=== PATIENT | female | born 1960 | race Two or more races ===

== ENCOUNTER 2016-09-11 09:22 | Emergency (ER) | payer OTHER ==
[~2016-09-11] VITALS: Ht 167.6 cm; Wt 63.6 kg
[2016-09-11 09:24] VITALS: BP 127/84
[2016-09-11] MEDS ORDERED: FLUT16H NASAL (09:34)
[2016-09-11] MEDS ORDERED: ATOR10TA84 PO (09:34)
[2016-09-11] MEDS ORDERED: TIOT4MIS2 IH (09:34)
[2016-09-11] MEDS ORDERED: PROP10 PO (09:34)
[2016-09-11] MEDS ORDERED: ALBU8HFA IH (09:34)
[2016-09-11 09:37] LABS: GLUCOSE,POINT OF CARE 115 MG/DL (70-110)
[2016-09-11] MEDS ORDERED: IBUPROFEN 600 MG TABLET PO ONE (10:00)
== END 2016-09-11 10:22 | disposition home or self-care (01) ==
LOC: EMS 09:24
DX: M25.531 Pain in right wrist (principal); J44.9 Chronic obstructive pulmonary disease, unspecified; E11.9 Type 2 diabetes mellitus without complications; I10 Essential (primary) hypertension; F17.210 Nicotine dependence, cigarettes, uncomplicated
CPT/HCPCS: 82962; 99282; 99283

== ENCOUNTER 2016-11-11 14:19 | Emergency (ER) | payer OTHER ==
[~2016-11-11] VITALS: Ht 167.6 cm; Wt 63.5 kg
[~2016-11-11 14:19] MED LIST: ALBU8HFA IH; ATOR10TA84 PO; FLUT16H NASAL; PROP10 PO; TIOT4MIS2 IH
[2016-11-11] MEDS ORDERED: IBUP-2070 PO (14:33)
[2016-11-11] MEDS ORDERED: MONT10TA21 PO (14:33)
[2016-11-11] MEDS ORDERED: ALBU8HFA4 IH (14:33)
[2016-11-11] MEDS ORDERED: METF500T4 PO (14:33)
[2016-11-11] MEDS ORDERED: OMEP20 PO (14:33)
[2016-11-11] MEDS ORDERED: DOCU240C25 PO (14:33)
[2016-11-11] MEDS ORDERED: LISI-660 PO (14:33)
[2016-11-11] MEDS ORDERED: CALC-51 PO (14:33)
[2016-11-11 14:36] LABS: GLUCOSE,POINT OF CARE 164 MG/DL (70-110)
[2016-11-11] MEDS ORDERED: ACETAMINOPHEN 500 MG TABLET PO ONE (15:15)
[2016-11-11] MEDS ORDERED: SULFAMETHOX/TRIMETH DS 800-160 MG/TABLET PO ONE (15:15)
[2016-11-11] MEDS ORDERED: CEPHALEXIN MONOHYDRATE 500 MG CAPSULE PO ONE (15:15)
[2016-11-11] MEDS ORDERED: DSS100 PO (15:16)
[2016-11-11 15:43] VITALS: BP 122/72
== END 2016-11-11 15:52 | disposition home or self-care (01) ==
LOC: EMS 14:21
DX: L03.116 Cellulitis of left lower limb (principal); E11.9 Type 2 diabetes mellitus without complications; J44.9 Chronic obstructive pulmonary disease, unspecified; I10 Essential (primary) hypertension; F17.210 Nicotine dependence, cigarettes, uncomplicated
CPT/HCPCS: 82962; 99284; 99406

== ENCOUNTER 2018-08-27 22:20 | Inpatient (IN) | payer OTHER ==
[~2018-08-27] VITALS: Ht 170.2 cm; Wt 64.2 kg
[~2018-08-27 22:20] MED LIST changes: +CALC-1038 PO; +DSS100 PO; +IBUP-2070 PO; +LISI-660 PO; +METF-960 PO; +MONT10TA21 PO; +OMEP20 PO; -PROP10 PO; -TIOT4MIS2 IH
[2018-08-27 23:49] LABS: GLUCOSE,POINT OF CARE 113 MG/DL (70-110)
[2018-08-28] MEDS ORDERED: ALBUTEROL SULFATE 5 MG/ML 20 ML NEB SOLN [BULK] NEB ONE
[2018-08-28] MEDS ORDERED: IPRATROPIUM BROMIDE 0.5 MG/2.5 ML NEB SOLUTION NEB ONE
[2018-08-28] MEDS ORDERED: MethylPREDNISolone SOD SUCC 125 MG/2 ML VIAL IVP ONE
[2018-08-28] MEDS ORDERED: 0.9% SODIUM CHLORIDE 15 ML NEB SOLUTION NEB ONE (00:23)
[2018-08-28 03:15] LABS: BASOPHILS % (AUTO) 0.2 % (0.0-2.0); EOSINOPHILS % (AUTO) 0.4 % (1.0-6.0); HEMATOCRIT 41.8 % (36-46); HEMOGLOBIN 14.2 g/dL (12.0-16.0); LYMPHOCYTES # (AUTO) 1.1 K/uL (1.0-4.8); LYMPHOCYTES % (AUTO) 7.8 % (22.0-44.0); MEAN CORPUSCULAR HEMOGLOBIN 31.1 pg (26.0-34.0); MEAN CORPUSCULAR VOLUME 92 fL (80-100); MONOCYTES # (AUTO) 0.3 K/uL (0.1-1.0); MONOCYTES % (AUTO) 1.9 % (2.0-9.0); NEUTROPHILS # (AUTO) 12.7 K/uL (1.8-7.7); PLATELET COUNT (AUTO) 276 K/uL (150-450); RED BLOOD CELL COUNT(AUTO) 4.57 MIL/uL (4.00-5.20); RED CELL DISTRIBUTION WIDTH 16.5 % (11.5-14.5)
[2018-08-28 03:17] LABS: NEUTROPHILS % (AUTO) 89.7 % (40.0-70.0)
[2018-08-28 03:30] LABS: ALANINE AMINOTRANSFERASE 17 U/L (12-78); ALBUMIN 3.5 g/dL (3.4-5.0); ALKALINE PHOSPHATASE 101 U/L (46-116); ANION GAP 13 mmol/L (8-16); ASPARTATE AMINOTRANSFERASE 22 U/L (15-37); BILIRUBIN,TOTAL 0.4 mg/dL (0.1-1.0); CALCIUM, TOTAL 9.3 mg/dL (8.8-10.5); CARBON DIOXIDE 26 mmol/L (22-29); CHLORIDE 103 mmol/L (98-107); CREATININE 0.68 mg/dL (0.60-1.30); GLOMERULAR FILTR. RATE CALC > 60 mL/min (>60); GLUCOSE,RANDOM 210 mg/dL (70-110); SODIUM SERUM 142 mmol/L (136-145); TOTAL PROTEIN, SERUM 7.4 g/dL (6.4-8.2); UREA NITROGEN, BLOOD 12 mg/dL (7-18)
[2018-08-28 03:36] LABS: B-TYPE NATRIURETIC PEPTIDE 83 pg/mL (0-100)
[2018-08-28 03:38] LABS: POTASSIUM 2.7 mmol/L (3.5-5.1)
[2018-08-28] MEDS ORDERED: SODIUM CHLORIDE 0.9% 1,800 ML IV ONE (03:54)
[2018-08-28] MEDS ORDERED: CefTRIAXone 1 GM/DEXTROSE 50 ML IV ONE (04:00)
[2018-08-28] MEDS ORDERED: AZITHROMYCIN 500 MG/NS 250 ML IV ONE (04:00)
[2018-08-28] MEDS ORDERED: LORazepam 1 MG TABLET PO ONE (04:00)
[2018-08-28] MEDS ORDERED: POTASSIUM CHLORIDE 20 MEQ ER TABLET PO ONE (04:00)
[2018-08-28] MEDS ORDERED: ONDANSETRON HCL 4 MG/2 ML VIAL IVP PRN (04:15)
[2018-08-28] MEDS ORDERED: ACETAMINOPHEN 325 MG TABLET PO PRN (04:15)
[2018-08-28] MEDS ORDERED: 0.9% SODIUM CHLORIDE 10 ML SYRINGE IVP PRN (04:15)
[2018-08-28 04:42] LABS: FREE T4 (FREE THYROXINE) 0.89 ng/dL (0.76-1.46); THYROID STIMULATING HORMONE 1.57 uIU/mL (0.36-3.74)
[2018-08-28] MEDS: POTASSIUM CHL 10 MEQ/WATER 50 ML IV SCH ×2 (04:53→06:21)
[2018-08-28] MEDS ORDERED: IOVERSOL 350 MG/ML 100 ML VIAL ONE (05:13)
[2018-08-28] MEDS ORDERED: SODIUM CHLORIDE 0.9% 100 ML ONE (05:13)
[2018-08-28] MEDS ORDERED: IPRATROPIUM BROMIDE 0.5 MG/2.5 ML NEB SOLUTION NEB SCH (07:00)
[2018-08-28] MEDS ORDERED: ALBUTEROL SULFATE 2.5 MG/0.5 ML NEB SOLUTION NEB SCH (07:00)
[2018-08-28 07:40] LABS: GLUCOSE,POINT OF CARE 195 MG/DL (70-110)
[2018-08-28 08:23] VITALS: BP 133/80
[2018-08-28] MEDS ORDERED: DEXTROSE 50%-WATER 25 GM/50 ML SYRINGE IVP PRN (08:30)
[2018-08-28] MEDS ORDERED: MAGNESIUM HYDROXIDE SUSPENSION 30 ML UDCUP PO PRN (08:30)
[2018-08-28] MEDS ORDERED: POTASSIUM CHL 10 MEQ/WATER 50 ML IV PRN (08:30)
[2018-08-28] MEDS ORDERED: ALBUTEROL SULFATE 2.5 MG/0.5 ML NEB SOLUTION NEB PRN (08:30)
[2018-08-28] MEDS ORDERED: POTASSIUM CHLORIDE 20 MEQ ER TABLET PO PRN (08:30)
[2018-08-28] MEDS ORDERED: IPRATROPIUM BROMIDE 0.5 MG/2.5 ML NEB SOLUTION NEB PRN (08:30)
[2018-08-28] MEDS: DOCUSATE SODIUM 100 MG CAPSULE PO SCH ×2 (09:00→19:58)
[2018-08-28] MEDS ORDERED: MAGNESIUM SULFATE 4 GM/WATER 100 ML IV PRN (09:15)
[2018-08-28] MEDS ORDERED: MAGNESIUM SULFATE 2 GM/WATER 50 ML IV PRN (09:15)
[2018-08-28] MEDS: MAGNESIUM OXIDE 400 MG TABLET PO PRN ×3 (09:29→21:56)
[2018-08-28] MEDS: FAMOTIDINE 20 MG TABLET PO SCH (09:30)
[2018-08-28] MEDS: ASPIRIN 81 MG CHEWABLE TABLET PO SCH (09:30)
[2018-08-28 11:05] VITALS: BP 136/83
[2018-08-28] MEDS: MethylPREDNISolone SOD SUCC 125 MG/2 ML VIAL IVP SCH ×3 (11:18→23:39)
[2018-08-28] MEDS: INSULIN LISPRO 100 UNITS/ML SQ PRN ×3 (11:36→21:53)
[2018-08-28 11:39] LABS: GLUCOMETER DEV NAME(LOC) 5N.2; GLUCOSE,POINT OF CARE 387 MG/DL (70-110)
[2018-08-28] MEDS: ACETAMINOPHEN 325 MG TABLET PO PRN ×2 (15:06→19:58)
[2018-08-28] MEDS: HEPARIN SODIUM,PORCINE 5,000 UNITS/ML VIAL SQ SCH ×2 (15:06→23:41)
[2018-08-28] MEDS ORDERED: PNEUMOCOCCAL VACCINE POLYVALENT 0.5 ML VIAL [PPSV23] IM ONE (15:30)
[2018-08-28 15:56] VITALS: BP 142/80
[2018-08-28 17:09] LABS: GLUCOMETER DEV NAME(LOC) 5N.2; GLUCOSE,POINT OF CARE 166 MG/DL (70-110)
[2018-08-28 19:43] VITALS: BP 134/73
[2018-08-28] MEDS ORDERED: ATORVASTATIN CALCIUM 20 MG TABLET PO SCH (21:00)
[2018-08-28 23:38] VITALS: BP 125/83
[2018-08-29 00:29] LABS: GLUCOMETER DEV NAME(LOC) 5S.2; GLUCOSE,POINT OF CARE 244 MG/DL (70-110)
[2018-08-29] MEDS ORDERED: AZITHROMYCIN 500 MG/NS 250 ML IV SCH (04:00)
[2018-08-29] MEDS ORDERED: SODIUM CHLORIDE 0.9% 250 ML IV ONE (04:21)
[2018-08-29 04:29] VITALS: BP 127/93
[2018-08-29] MEDS: MethylPREDNISolone SOD SUCC 125 MG/2 ML VIAL IVP SCH (05:43)
[2018-08-29] MEDS: INSULIN LISPRO 100 UNITS/ML SQ PRN (05:44)
[2018-08-29 06:53] LABS: BASOPHILS % (AUTO) 0.1 % (0.0-2.0); EOSINOPHILS % (AUTO) 0 % (1.0-6.0); HEMOGLOBIN 13.7 g/dL (12.0-16.0); LYMPHOCYTES # (AUTO) 1.3 K/uL (1.0-4.8); LYMPHOCYTES % (AUTO) 8.2 % (22.0-44.0); MEAN CORPUSCULAR HGB CONC 33.5 G/dL (31.0-37.0); MEAN CORPUSCULAR VOLUME 93 fL (80-100); MONOCYTES # (AUTO) 0.3 K/uL (0.1-1.0); MONOCYTES % (AUTO) 2.2 % (2.0-9.0); NEUTROPHILS # (AUTO) 13.8 K/uL (1.8-7.7); PLATELET COUNT (AUTO) 261 K/uL (150-450); RED BLOOD CELL COUNT(AUTO) 4.43 MIL/uL (4.00-5.20); RED CELL DISTRIBUTION WIDTH 16.3 % (11.5-14.5)
[2018-08-29 06:56] LABS: NEUTROPHILS % (AUTO) 89.5 % (40.0-70.0)
[2018-08-29 07:15] VITALS: BP 141/76
[2018-08-29 07:19] LABS: ALANINE AMINOTRANSFERASE 15 U/L (12-78); ALBUMIN 2.8 g/dL (3.4-5.0); ALKALINE PHOSPHATASE 71 U/L (46-116); ANION GAP 11 mmol/L (8-16); ASPARTATE AMINOTRANSFERASE 15 U/L (15-37); BILIRUBIN,TOTAL 0.2 mg/dL (0.1-1.0); CALCIUM, TOTAL 9.1 mg/dL (8.8-10.5); CARBON DIOXIDE 27 mmol/L (22-29); CHLORIDE 104 mmol/L (98-107); CREATININE 0.61 mg/dL (0.60-1.30); GLOMERULAR FILTR. RATE CALC > 60 mL/min (>60); GLUCOSE,RANDOM 201 mg/dL (70-110); POTASSIUM 3.7 mmol/L (3.5-5.1); SODIUM SERUM 142 mmol/L (136-145); TOTAL PROTEIN, SERUM 6.4 g/dL (6.4-8.2); UREA NITROGEN, BLOOD 10 mg/dL (7-18)
[2018-08-29] MEDS: FAMOTIDINE 20 MG TABLET PO SCH (08:19)
[2018-08-29] MEDS: ACETAMINOPHEN 325 MG TABLET PO PRN (08:19)
[2018-08-29] MEDS: DOCUSATE SODIUM 100 MG CAPSULE PO SCH (08:20)
[2018-08-29] MEDS: ASPIRIN 81 MG CHEWABLE TABLET PO SCH (08:20)
[2018-08-29] MEDS: HEPARIN SODIUM,PORCINE 5,000 UNITS/ML VIAL SQ SCH (08:20)
[2018-08-29] MEDS ORDERED: NICOTINE 21 MG/24 HOUR PATCH TD SCH (09:00)
[2018-08-29 11:05] VITALS: BP 142/79
[2018-08-30 00:04] LABS: GLUCOMETER DEV NAME(LOC) 5N.1; GLUCOSE,POINT OF CARE 214 MG/DL (70-110)
== END 2018-08-29 11:35 | disposition home or self-care (01) | DRG 140 ==
LOC: EMS 22:22 → 5N 08-28 05:00
PROVIDERS: ADMIT Internal Medicine; ATTEND Internal Medicine
PROC: 3E0234Z Introduction of Serum, Toxoid and Vaccine into Muscle, Percutaneous Approach (ICD-10-PCS; principal; 2018-08-28)
DX: J44.1 Chronic obstructive pulmonary disease with (acute) exacerbation (principal); E83.42 Hypomagnesemia; J45.901 Unspecified asthma with (acute) exacerbation; J20.9 Acute bronchitis, unspecified; J44.0 Chronic obstructive pulmonary disease with (acute) lower respiratory infection; E11.9 Type 2 diabetes mellitus without complications; E87.6 Hypokalemia; F17.210 Nicotine dependence, cigarettes, uncomplicated; I10 Essential (primary) hypertension; R00.0 Tachycardia, unspecified; Z23 Encounter for immunization
CPT/HCPCS: 71275; 83036; 83605; 83735; 84132; 84439; 84443; 85379; 87040; 90732; 93005; 94640; 94644; 96365; 96375; G0378; J0456; J0696; J1644; J2930; J3480; J7050

== ENCOUNTER 2019-02-05 19:26 | Emergency (ER) | payer OTHER ==
[~2019-02-05] VITALS: Ht 167.6 cm; Wt 52.3 kg
[~2019-02-05 19:26] MED LIST changes: -FLUT16H NASAL; -IBUP-2070 PO
[2019-02-05 19:44] LABS: GLUCOSE,POINT OF CARE 65 MG/DL (70-110)
[2019-02-05] MEDS ORDERED: IPRATROPIUM BROMIDE 0.5 MG/2.5 ML NEB SOLUTION NEB ONE (20:00)
[2019-02-05] MEDS ORDERED: MethylPREDNISolone SOD SUCC 125 MG/2 ML VIAL IVP ONE (20:00)
[2019-02-05] MEDS ORDERED: ASPIRIN 81 MG CHEWABLE TABLET PO ONE (20:00)
[2019-02-05] MEDS ORDERED: ALBUTEROL SULFATE 5 MG/ML 20 ML NEB SOLN [BULK] NEB ONE (20:00)
[2019-02-05 20:10] LABS: BASOPHILS % (AUTO) 0.6 % (0.0-2.0); HEMATOCRIT 47.3 % (36-46); HEMOGLOBIN 16.3 g/dL (12.0-16.0); LYMPHOCYTES # (AUTO) 6.6 K/uL (1.0-4.8); LYMPHOCYTES % (AUTO) 61.1 % (22.0-44.0); MEAN CORPUSCULAR HGB CONC 34.4 G/dL (31.0-37.0); MEAN CORPUSCULAR VOLUME 99 fL (80-100); MONOCYTES # (AUTO) 0.8 K/uL (0.1-1.0); MONOCYTES % (AUTO) 7.4 % (2.0-9.0); NEUTROPHILS # (AUTO) 3.2 K/uL (1.8-7.7); NEUTROPHILS % (AUTO) 29.9 % (40.0-70.0); PLATELET COUNT (AUTO) 250 K/uL (150-450); RED BLOOD CELL COUNT(AUTO) 4.79 MIL/uL (4.00-5.20); RED CELL DISTRIBUTION WIDTH 14.6 % (11.5-14.5)
[2019-02-05 20:22] LABS: ANION GAP 16 mmol/L (8-16); CALCIUM, TOTAL 8.8 mg/dL (8.8-10.5); CARBON DIOXIDE 28 mmol/L (22-29); CHLORIDE 101 mmol/L (98-107); CREATININE 0.64 mg/dL (0.60-1.30); GLOMERULAR FILTR. RATE CALC > 60 mL/min (>60); GLUCOSE,RANDOM 102 mg/dL (70-110); POTASSIUM 3.1 mmol/L (3.5-5.1); SODIUM SERUM 145 mmol/L (136-145); UREA NITROGEN, BLOOD 8 mg/dL (7-18)
[2019-02-05 20:32] LABS: ALANINE AMINOTRANSFERASE 27 U/L (12-78); ALBUMIN 3.7 g/dL (3.4-5.0); ALKALINE PHOSPHATASE 84 U/L (46-116); ASPARTATE AMINOTRANSFERASE 44 U/L (15-37); CREATINE KINASE, TOTAL ONLY 61 U/L (26-192); TOTAL PROTEIN, SERUM 7.4 g/dL (6.4-8.2)
[2019-02-05 20:44] LABS: APPEARANCE,URINE CLOUDY (CLEAR); BILIRUBIN,URINE NEGATIVE (NEGATIVE); GLUCOSE, URINE (UA) NEGATIVE (NEGATIVE); KETONES,URINE NEGATIVE (NEGATIVE); LEUKOCYTE ESTERASE ,URINE NEGATIVE (NEGATIVE); NITRATE,URINE NEGATIVE (NEGATIVE); OCCULT BLOOD,URINE MODERATE (NEGATIVE); PROTEIN,URINE POS 1+ (NEGATIVE); UROBILINOGEN,URINE 0.2 mg/dL (<=1.0)
[2019-02-05 20:50] LABS: B-TYPE NATRIURETIC PEPTIDE 11 pg/mL (0-100)
[2019-02-05 21:05] LABS: BACTERIA,URINE Few /HPF (None Seen); RBC,URINE 0-2 /HPF (0-2); SQUAMOUS EPITHELIAL CELL,UR Moderate /LPF (None Seen); WBC,URINE 0-2 /HPF (0-5)
[2019-02-05 21:06] LABS: HYALINE CASTS, URINE 0-2 /LPF (None Seen)
[2019-02-05 21:07] LABS: CALCIUM OXALATE CRYSTALS,UR Moderate /LPF (None Seen); COARSE GRANULAR CASTS,URINE 0-2 /LPF (None Seen)
[2019-02-05 22:15] VITALS: BP 122/65
[2019-02-05] MEDS ORDERED: POTASSIUM CHLORIDE 20 MEQ ER TABLET PO ONE (23:00)
== END 2019-02-05 23:09 | disposition home or self-care (01) ==
LOC: EMS 19:28
DX: J44.1 Chronic obstructive pulmonary disease with (acute) exacerbation (principal); E87.6 Hypokalemia; F17.210 Nicotine dependence, cigarettes, uncomplicated; E11.9 Type 2 diabetes mellitus without complications; I10 Essential (primary) hypertension; Z79.899 Other long term (current) drug therapy; Z79.84 Long term (current) use of oral hypoglycemic drugs
CPT/HCPCS: 36415; 71045; 80053; 81001; 82550; 82962; 83880; 84484; 85025; 93005; 94640; 96374; 99285; 99406; J2930; 94644

== ENCOUNTER 2020-04-01 13:36 | Emergency (ER) | payer OTHER ==
[~2020-04-01] VITALS: Ht 167.6 cm; Wt 59.1 kg
[~2020-04-01 13:36] MED LIST changes: +MONT-35 PO; -MONT10TA21 PO
[2020-04-01 13:58] LABS: GLUCOSE,POINT OF CARE 116 MG/DL (70-110)
[2020-04-01] MEDS ORDERED: MORPHINE SULFATE 4 MG/ML SYRINGE IM ONE (15:30)
[2020-04-01] MEDS ORDERED: ONDANSETRON HCL 4 MG/2 ML VIAL IM ONE (15:30)
[2020-04-01 16:42] VITALS: BP 126/75
== END 2020-04-01 16:45 | disposition home or self-care (01) ==
LOC: EMS 13:36
DX: S42.202A Unspecified fracture of upper end of left humerus, initial encounter for closed fracture (principal); J44.9 Chronic obstructive pulmonary disease, unspecified; E11.9 Type 2 diabetes mellitus without complications; I10 Essential (primary) hypertension; F17.210 Nicotine dependence, cigarettes, uncomplicated; Z79.84 Long term (current) use of oral hypoglycemic drugs; Z79.899 Other long term (current) drug therapy; W19.XXXA Unspecified fall, initial encounter; Y93.89 Activity, other specified; Y92.89 Other specified places as the place of occurrence of the external cause; Y99.8 Other external cause status
CPT/HCPCS: 29105; 73030; 73060; 82962; 96372; 99284; J2270; J2405

== ENCOUNTER 2021-12-13 17:32 | Emergency (ER) | payer OTHER ==
[~2021-12-13] VITALS: Ht 157.5 cm; Wt 61.4 kg
[~2021-12-13 17:32] MED LIST changes: -LISI-660 PO; +LISI-892 PO; +METF-1211 PO; -METF-960 PO
[2021-12-13] MEDS ORDERED: ALBUTEROL SULFATE 5 MG/ML 20 ML NEB SOLN [BULK] NEB ONE (17:35)
[2021-12-13] MEDS ORDERED: MethylPREDNISolone SOD SUCC 125 MG/2 ML VIAL IVP ONE (17:45)
[2021-12-13] MEDS ORDERED: 0.9% SODIUM CHLORIDE 5 ML NEB SOLUTION NEB ONE (17:48)
[2021-12-13 17:55] LABS: COVID AG,FIA SOURCE NASOPHARYNGEAL
[2021-12-13 18:03] LABS: BASOPHILS % (AUTO) 0.5 % (0.0-2.0); EOSINOPHILS % (AUTO) 0.5 % (1.0-6.0); HEMATOCRIT 48.5 % (36-46); HEMOGLOBIN 16.6 g/dL (12.0-16.0); LYMPHOCYTES # (AUTO) 2.6 K/uL (1.0-4.8); LYMPHOCYTES % (AUTO) 16.8 % (22.0-44.0); MEAN CORPUSCULAR HGB CONC 34.2 G/dL (31.0-37.0); MEAN CORPUSCULAR VOLUME 94 fL (80-100); MONOCYTES # (AUTO) 0.5 K/uL (0.1-1.0); MONOCYTES % (AUTO) 3.5 % (2.0-9.0); NEUTROPHILS # (AUTO) 12.2 K/uL (1.8-7.7); NEUTROPHILS % (AUTO) 78.7 % (40.0-70.0); PLATELET COUNT (AUTO) 313 K/uL (150-450); RED BLOOD CELL COUNT(AUTO) 5.18 MIL/uL (4.00-5.20); RED CELL DISTRIBUTION WIDTH 13.9 % (11.5-14.5)
[2021-12-13 18:05] LABS: ANION GAP 24 mmol/L (8-16); CALCIUM, TOTAL 9.8 mg/dL (8.8-10.5); CARBON DIOXIDE 19 mmol/L (22-29); CHLORIDE 99 mmol/L (98-107); CREATININE 0.47 mg/dL (0.60-1.30); GLUCOSE,RANDOM 103 mg/dL (70-110); POTASSIUM 3.5 mmol/L (3.5-5.1); SODIUM SERUM 142 mmol/L (136-145); UREA NITROGEN, BLOOD 9 mg/dL (7-18)
[2021-12-13 18:09] LABS: GLOMERULAR FILTR. RATE CALC > 60 mL/min (>60)
[2021-12-13 18:23] LABS: ALANINE AMINOTRANSFERASE 20 U/L (12-78); ALBUMIN 3.7 g/dL (3.4-5.0); ALKALINE PHOSPHATASE 86 U/L (46-116); ASPARTATE AMINOTRANSFERASE 19 U/L (15-37); BILIRUBIN,TOTAL 0.4 mg/dL (0.1-1.0); CREATINE KINASE, TOTAL ONLY 51 U/L (26-192); TOTAL PROTEIN, SERUM 7.9 g/dL (6.4-8.2)
[2021-12-13 18:25] LABS: INFLUENZA TYPE A NEGATIVE FOR TYPE A (NEGATIVE); INFLUENZA TYPE B NEGATIVE FOR TYPE B (NEGATIVE)
[2021-12-13 18:30] LABS: B-TYPE NATRIURETIC PEPTIDE 27 pg/mL (0-100)
[2021-12-13 19:30] VITALS: BP 124/77
== END 2021-12-13 19:40 | disposition left against medical advice (07) ==
LOC: EDBD 17:36 → MERGE 17:36 → EMS 17:36
DX: J44.1 Chronic obstructive pulmonary disease with (acute) exacerbation (principal); Z20.822 Contact with and (suspected) exposure to COVID-19
CPT/HCPCS: 99291; 94060; 96374; 71045; 87426; 80053; 82550; 82962; 83880; 84484; 85025; 87804; 36415; 94644; 93005; J2930